=== PATIENT | male | born 1980 | race Caucasian/White ===

== ENCOUNTER 2024-11-21 15:40 | Inpatient (IN) | payer MEDICAID, OTHER, SELFPAY ==
[2024-11-21 16:00] VITALS: BP 112/62; PULSE 80; RESP 16; TEMP 36.8; O2SAT 98
[2024-11-21 16:23] VITALS: BMI 18.9
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
[2024-11-21 20:00] VITALS: BP 101/64; PULSE 78; RESP 16; TEMP 36.6; O2SAT 96
[2024-11-21] MEDS: OLANZapine 7.5 MG TABLET 15 MG PO (21:00)
[2024-11-21] MEDS: Fluticasone/Vilanterol 200/25 BLST.W.DEV 1 PUFF INHALE (21:26)
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
[2024-11-22 07:00] VITALS: BMI 19.4
[2024-11-22 07:25] VITALS: BP 121/74; PULSE 73; RESP 16; TEMP 36.2; O2SAT 97
[2024-11-22 07:44] LABS: MANUAL DIFF FLAG NO
[2024-11-22 07:59] LABS: Hematocrit 45.5 % (42.0-52.0); Hemoglobin 14.7 g/dl (14.0-18.0); Imm Gran Abs Auto 0.03 X10*3/uL (0.00-0.03); Imm Gran Pct Auto 0.4 % (0.0-0.4); Lymphocytes Absolute Auto 2.2 X10*3/uL (1.2-4.9); Mean Corpuscular HGB Conc 32.3 g/dl (31.0-36.0); Mean Corpuscular Hemoglobin 30.9 pg (27.0-33.0); Mean Corpuscular Volume 95.6 fL (80.0-98.0); NRBC Abs Auto 0.000 X10*3/uL (0.0-0.012); NRBC Pct Auto 0.0 /100WBC (0.0-0.2); Platelet Count 349 X10*3/uL (160-400); Red Blood Count 4.76 X10*6/uL (4.60-5.80); White Blood Count 6.8 X10*3/uL (4.8-10.8)
[2024-11-22 08:17] LABS: Alanine Aminotransferase 67 U/L (0-40); Albumin Level 4.8 g/dL (3.5-5.0); Alkaline Phosphatase 81 U/L (39-117); Anion Gap 13 (12-20); Aspartate Amino Transferase 32 U/L (5-37); Blood Urea Nitrogen 20 mg/dL (9-16); Calcium 9.6 mg/dL (8.4-10.2); Carbon Dioxide 29 mmol/L (22-29); Chloride 106 mmol/L (96-108); Cholesterol 190 mg/dL (<200); Creatinine Clr Calc Pharmacy 100.4; Estimated Glomerular Filt Rate > 60; HDL Cholesterol 64 mg/dL (>40); Potassium 4.7 mmol/L (3.3-5.1); Sodium 143 mmol/L (135-145); Total Protein 7.4 g/dL (6.5-8.0); Triglycerides 54 mg/dL (<150)
[2024-11-22 08:18] LABS: Hemoglobin A1C 123.8561 umol/L; Total Hemoglobin (HGBA1C) 3770.9232 umol/L
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
[2024-11-22] MEDS: Fluticasone/Vilanterol 200/25 BLST.W.DEV 1 PUFF INHALE ×2 (08:52→20:30)
[2024-11-22] MEDS: Magnesium Hydrox/Alum Hydrox 30 ML ORAL.SUSP PO (14:35)
--- NOTE | 2024-11-22 17:39 | HO.PSYCHPN ---
Subjective Subjective Date of Service: 11/22/24 Reason For Visit: schizophrenia, unspecified type Subjective Notes: Conditional Voluntary Interim History: chart reviewed, case discussed with tx team Pt speaks [place] (first language) and Vietnamese. I offered an railroad car painter but pt declined. Pt reports that he came to the hospital to get help with getting a house, car and money. 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 T/W informed pt that the hospital cannot help him obtain these things but SW may be able to help him get into a intermediate. He reports being hospitalized >70 x in [facility] for schizophrenia. denies any h/o hallucinations Pt denies AH/VH, depression, anxiety, SI/violent ideation Denies physical complaints or med SE He is content w/ his current med regimen Mental Status Exam Mental Status Exam Narrative: Appearance: fair grooming. Good eye contact Attitude:Cooperative Speech: Generally fluent in Vietnamese, declined business office associate. Motor activity: Calm and without any tics, tremors or dyskinesias. Steady gait Mood: as noted above Affect: appropriate, reactive, generally bright Thought process: Somewhat disorganized Thought content: as noted above. Perception: Denies AH/VH and does not appear to respond to internal stimuli Insight: fair Judgment: impaired Diagnostics Vital Signs (24Hr): Vital Signs - 24 hr 11/21/24 20:00 11/22/24 07:25 Temperature 97.8 F 97.1 F Pulse Rate 78 73 Respiratory Rate 16 16 Blood Pressure 101/64 121/74 Pulse Oximetry 96 97 Oxygen Delivery Method Room Air Room Air BMI result Body Mass Index 19.4 Labs 11/22/24 07:30 11/22/24 07:30 Labs: Laboratory Results - last 48 hr 11/22/24 07:30 WBC 6.8 RBC 4.76 Hgb 14.7 Hct 45.5 MCV 95.6 MCH 30.9 MCHC 32.3 RDW 13.5 Plt Count 349 MPV 9.2 L Immature Gran % (Auto) 0.4 Neut % (Auto) 57.5 Lymph % (Auto) 32.1 [place] % (Auto) 4.8 Eos % (Auto) 3.7 Baso % (Auto) 1.5 Lymph # (Auto) 2.2 [place] # (Auto) 0.3 Eos # (Auto) 0.3 Baso # (Auto) 0.1 Abs Immat Gran (auto) 0.03 Absolute Neuts (auto) 3.9 Absolute Nucleated RBC 0.000 Nucleated RBC % (auto) 0.0 Sodium 143 Potassium 4.7 Chloride 106 Carbon Dioxide 29 Anion Gap 13 BUN 20 H Creatinine 0.78 Estim Creat Clear Calc 100.4 Estimated GFR > 60 Random Glucose 88 Estimat Average Glucose 103 Hemoglobin A1c % 5.2 Calcium 9.6 Total Bilirubin 0.3 AST 32 ALT 67 H Alkaline Phosphatase 81 Total Protein 7.4 Albumin 4.8 Triglycerides 54 Cholesterol 190 LDL Cholesterol, Calc 116 H HDL Cholesterol 64 Medications Medications Current Medications Acetaminophen (Acetaminophen 325 Mg Tablet) 650 mg PO Q6H PRN PRN Reason: Headache/Pain, Scale 1-10 Al Hydroxide/Mg Hydroxide (Magnesium Hydrox/Alum Hydrox 30 Ml Oral.Susp) 30 ml PO Q6H PRN PRN Reason: Heartburn/Nausea Last Admin: 11/22/24 14:35 Dose: 30 ml Albuterol Sulfate (Albuterol Sulfate 90 Mcg 8 Gm Inhaler) 2 puff INHALE RQ6H PRN PRN Reason: Shortness of Breath/Wheezing Atorvastatin Calcium (Atorvastatin Calcium 20 Mg Tablet) 20 mg PO DAILY [facility] Last Admin: 11/22/24 08:53 Dose: 20 mg Fluticasone/Vilanterol (Fluticasone/Vilanterol 200/25 Blst.W.Dev) 1 puff INHALE RBID [facility] Last Admin: 11/22/24 08:52 Dose: 1 puff Hydroxyzine HCl (Hydroxyzine Hcl 25 Mg Tablet) 25 mg PO Q6H PRN PRN Reason: mild anxiety Magnesium Hydroxide (Milk Of Magnesia 30 Ml Oral.Susp) 30 ml PO DAILY PRN PRN Reason: Constipation Nicotine Polacrilex (Nicotine Polacrilex 2 Mg Gum) 2 mg BUCCAL Q2H PRN PRN Reason: Nicotine Cravings Last Admin: 11/22/24 12:51 Dose: 2 mg Olanzapine (Olanzapine 7.5 Mg Tablet) 15 mg PO BEDTIME [facility] Last Admin: 11/21/24 21:00 Dose: 15 mg Olanzapine (Olanzapine 10 Mg Tablet) 10 mg PO DAILY [facility] Last Admin: 11/22/24 08:53 Dose: 10 mg Quetiapine Fumarate (Quetiapine Fumarate 50 Mg Tablet) 50 mg PO BID PRN PRN Reason: Hallucinations Trazodone HCl (Trazodone Hcl 50 Mg Tablet) 50 mg PO BEDTIME MRX1 PRN PRN Reason: Insomnia Allergies Allergies Allergy/AdvReac Type Severity Reaction Status Date / Time No Known Allergies Allergy Verified 11/21/24 16:22 Assessment & Plan Assessment & Plan (1) Schizophrenia: Status: Acute Code(s): F20.9 - Schizophrenia, unspecified Plan patient is a 44 y.o male with hx of schizophrenia who was brought in on a section 12 as he eloped from [facility] where he has been for about a week and was found by [employer] urinating in the street. Patient exhibited worsening psychotic symptoms, increasing in agitation. Hospital course: 11/21/24: Increase zypexa up to total 25mg daily in divided dose. Pending effect. Seroquel PRN available. 11/22/24: pt denies any psychiatric concerns, states that he just wants help w/ housing, a car and money. Will continue current tx plan for now. Reason for continued inpatient stay Substantial Risk for: med/psych decompensation Time Spent With Patient Time: Total time managing care of this patient today _30___ minutes.
[2024-11-22 20:00] VITALS: BP 107/56; PULSE 88; RESP 16; TEMP 36.5; O2SAT 99
[2024-11-22] MEDS: OLANZapine 7.5 MG TABLET 15 MG PO (20:30)
[2024-11-23 07:49] VITALS: BP 112/66; PULSE 73; RESP 14; TEMP 36.4; O2SAT 97
[2024-11-23] MEDS: Fluticasone/Vilanterol 200/25 BLST.W.DEV 1 PUFF INHALE ×2 (08:37→20:33)
--- NOTE | 2024-11-23 15:30 | P.PNPSI_ITS ---
Subjective Subjective Date of Service: 11/23/24 Reason For Visit: schizophrenia, unspecified type Interim History: Active on unit. Patient reports feeling okay today; he reports sleeping well last night. Pt states he will try to go to groups today. denies SI/HI/VH/AH. denies any issues at this time. Continue tx plan. Medication Compliance: Yes Side effects from medications: No Attending Groups: Intermittent Mental Status Exam Mental Status Exam Patient Appearance: Appropriate Patient Orientation: Person, Place, Time and Situation Level of Consciousness: Awake and Alert Patient Behavior: Cooperative and Good Eye Contact Mood Description: Calm Affect Description: Calm Ability to Follow Directions: Good Speech Pattern: Clear Memory Description: Intact Hallucinations: None Delusions: Not Present Thought Process: Intact Thought Content: positive for Intact Diagnostics Vital Signs (24Hr): Vital Signs - 24 hr 11/22/24 20:00 11/23/24 07:49 Temperature 97.7 F 97.6 F Pulse Rate 88 73 Respiratory Rate 16 14 Blood Pressure 107/56 L 112/66 Pulse Oximetry 99 97 Oxygen Delivery Method Room Air Room Air BMI result Body Mass Index 19.4 Labs 11/22/24 07:30 11/22/24 07:30 Labs: Laboratory Results - last 48 hr 11/22/24 07:30 WBC 6.8 RBC 4.76 Hgb 14.7 Hct 45.5 MCV 95.6 MCH 30.9 MCHC 32.3 RDW 13.5 Plt Count 349 MPV 9.2 L Immature Gran % (Auto) 0.4 Neut % (Auto) 57.5 Lymph % (Auto) 32.1 Baca % (Auto) 4.8 Eos % (Auto) 3.7 Baso % (Auto) 1.5 Lymph # (Auto) 2.2 [place] # (Auto) 0.3 Eos # (Auto) 0.3 Baso # (Auto) 0.1 Abs Immat Gran (auto) 0.03 Absolute Neuts (auto) 3.9 Absolute Nucleated RBC 0.000 Nucleated RBC % (auto) 0.0 Sodium 143 Potassium 4.7 Chloride 106 Carbon Dioxide 29 Anion Gap 13 BUN 20 H Creatinine 0.78 Estim Creat Clear Calc 100.4 Estimated GFR > 60 Random Glucose 88 Estimat Average Glucose 103 Hemoglobin A1c % 5.2 Calcium 9.6 Total Bilirubin 0.3 AST 32 ALT 67 H Alkaline Phosphatase 81 Total Protein 7.4 Albumin 4.8 Triglycerides 54 Cholesterol 190 LDL Cholesterol, Calc 116 H HDL Cholesterol 64 Medications Medications Current Medications Acetaminophen (Acetaminophen 325 Mg Tablet) 650 mg PO Q6H PRN PRN Reason: Headache/Pain, Scale 1-10 Al Hydroxide/Mg Hydroxide (Magnesium Hydrox/Alum Hydrox 30 Ml Oral.Susp) 30 ml PO Q6H PRN PRN Reason: Heartburn/Nausea Last Admin: 11/22/24 14:35 Dose: 30 ml Albuterol Sulfate (Albuterol Sulfate 90 Mcg 8 Gm Inhaler) 2 puff INHALE RQ6H PRN PRN Reason: Shortness of Breath/Wheezing Atorvastatin Calcium (Atorvastatin Calcium 20 Mg Tablet) 20 mg PO DAILY [facility] Last Admin: 11/23/24 08:36 Dose: 20 mg Fluticasone/Vilanterol (Fluticasone/Vilanterol 200/25 Blst.W.Dev) 1 puff INHALE RBID [facility] Last Admin: 11/23/24 08:37 Dose: 1 puff Hydroxyzine HCl (Hydroxyzine Hcl 25 Mg Tablet) 25 mg PO Q6H PRN PRN Reason: mild anxiety Magnesium Hydroxide (Milk Of Magnesia 30 Ml Oral.Susp) 30 ml PO DAILY PRN PRN Reason: Constipation Nicotine Polacrilex (Nicotine Polacrilex 2 Mg Gum) 2 mg BUCCAL Q2H PRN PRN Reason: Nicotine Cravings Last Admin: 11/23/24 14:20 Dose: 2 mg Olanzapine (Olanzapine 7.5 Mg Tablet) 15 mg PO BEDTIME [facility] Last Admin: 11/22/24 20:30 Dose: 15 mg Olanzapine (Olanzapine 10 Mg Tablet) 10 mg PO DAILY [facility] Last Admin: 11/23/24 08:36 Dose: 10 mg Quetiapine Fumarate (Quetiapine Fumarate 50 Mg Tablet) 50 mg PO BID PRN PRN Reason: Hallucinations Trazodone HCl (Trazodone Hcl 50 Mg Tablet) 50 mg PO BEDTIME MRX1 PRN PRN Reason: Insomnia Allergies Allergies Allergy/AdvReac Type Severity Reaction Status Date / Time No Known Allergies Allergy Verified 11/21/24 16:22 Assessment & Plan Assessment & Plan (1) Schizophrenia: Status: Acute Code(s): F20.9 - Schizophrenia, unspecified Plan patient is a 44 y.o male with hx of schizophrenia who was brought in on a section 12 as he eloped from [facility] where he has been for about a week and was found by [employer] urinating in the [address]. Patient exhibited worsening psychotic symptoms, increasing in agitation. Hospital course: 11/21/24: Increase zypexa up to total 25mg daily in divided dose. Pending effect. Seroquel PRN available. 11/22/24: pt denies any psychiatric concerns, states that he just wants help w/ housing, a car and money. Will continue current tx plan for now. 11/23: Active on unit. Patient reports feeling okay today; he reports sleeping well last night. Pt states he will try to go to groups today. denies SI/HI/VH/AH. denies any issues at this time. Continue tx plan. Patient educated on: diagnosis and medication risk/benefits Reason for continued inpatient stay Substantial Risk for: med/psych decompensation Time Spent With Patient Time: Total time managing care of this patient today _15___ minutes.
[2024-11-23 20:23] VITALS: BP 123/79; PULSE 70; RESP 16; TEMP 37.1; O2SAT 96
[2024-11-23] MEDS: OLANZapine 7.5 MG TABLET 15 MG PO (20:28)
[2024-11-24 08:00] VITALS: BP 124/82; PULSE 72; RESP 18; TEMP 36.1; O2SAT 97
[2024-11-24] MEDS: Fluticasone/Vilanterol 200/25 BLST.W.DEV 1 PUFF INHALE ×2 (08:49→22:16)
--- NOTE | 2024-11-24 11:04 | HO.PSYCHPN ---
Subjective Subjective Date of Service: 11/24/24 Reason For Visit: schizophrenia, unspecified type Subjective Notes: Conditional Voluntary Interim History: Patient was seen and discussed in rounds today. Records and plans were reviewed. He continues to be flat and guarded. Appears to be responding to internal stimuli. Medication compliant. No complaints or side effects. Eating and sleeping adequately. No SI. No changes were made today Review of Systems Review of Systems Yes all other systems are reviewed and are negative Mental Status Exam Mental Status Exam Patient Appearance: Appropriate Patient Orientation: Person, Place, Time and Situation Level of Consciousness: Awake and Alert Patient Behavior: Cooperative and Good Eye Contact Mood Description: Calm Affect Description: Calm Ability to Follow Directions: Good Speech Pattern: Clear Memory Description: Intact Hallucinations: None Delusions: Not Present Thought Process: Intact Thought Content: positive for Intact Diagnostics Vital Signs (24Hr): Vital Signs - 24 hr 11/23/24 20:23 11/24/24 08:00 Temperature 98.8 F 96.9 F Pulse Rate 70 72 Respiratory Rate 16 18 Blood Pressure 123/79 124/82 Pulse Oximetry 96 97 Oxygen Delivery Method Room Air Room Air BMI result Body Mass Index 19.4 Labs 11/22/24 07:30 11/22/24 07:30 Medications Medications Current Medications Acetaminophen (Acetaminophen 325 Mg Tablet) 650 mg PO Q6H PRN PRN Reason: Headache/Pain, Scale 1-10 Al Hydroxide/Mg Hydroxide (Magnesium Hydrox/Alum Hydrox 30 Ml Oral.Susp) 30 ml PO Q6H PRN PRN Reason: Heartburn/Nausea Last Admin: 11/22/24 14:35 Dose: 30 ml Albuterol Sulfate (Albuterol Sulfate 90 Mcg 8 Gm Inhaler) 2 puff INHALE RQ6H PRN PRN Reason: Shortness of Breath/Wheezing Atorvastatin Calcium (Atorvastatin Calcium 20 Mg Tablet) 20 mg PO DAILY [facility] Last Admin: 11/24/24 08:50 Dose: 20 mg Fluticasone/Vilanterol (Fluticasone/Vilanterol 200/25 Blst.W.Dev) 1 puff INHALE RBID [facility] Last Admin: 11/24/24 08:49 Dose: 1 puff Hydroxyzine HCl (Hydroxyzine Hcl 25 Mg Tablet) 25 mg PO Q6H PRN PRN Reason: mild anxiety Magnesium Hydroxide (Milk Of Magnesia 30 Ml Oral.Susp) 30 ml PO DAILY PRN PRN Reason: Constipation Nicotine Polacrilex (Nicotine Polacrilex 2 Mg Gum) 2 mg BUCCAL Q2H PRN PRN Reason: Nicotine Cravings Last Admin: 11/24/24 10:45 Dose: 2 mg Olanzapine (Olanzapine 7.5 Mg Tablet) 15 mg PO BEDTIME [facility] Last Admin: 11/23/24 20:28 Dose: 15 mg Olanzapine (Olanzapine 10 Mg Tablet) 10 mg PO DAILY [facility] Last Admin: 11/24/24 08:50 Dose: 10 mg Quetiapine Fumarate (Quetiapine Fumarate 50 Mg Tablet) 50 mg PO BID PRN PRN Reason: Hallucinations Last Admin: 11/23/24 20:28 Dose: 50 mg Trazodone HCl (Trazodone Hcl 50 Mg Tablet) 50 mg PO BEDTIME MRX1 PRN PRN Reason: Insomnia Allergies Allergies Allergy/AdvReac Type Severity Reaction Status Date / Time No Known Allergies Allergy Verified 11/21/24 16:22 Assessment & Plan Assessment & Plan (1) Schizophrenia: Status: Acute Code(s): F20.9 - Schizophrenia, unspecified Plan patient is a 44 y.o male with hx of schizophrenia who was brought in on a section 12 as he eloped from [facility] where he has been for about a week and was found by [employer] urinating in the [address]. Patient exhibited worsening psychotic symptoms, increasing in agitation. Hospital course: 11/21/24: Increase zypexa up to total 25mg daily in divided dose. Pending effect. Seroquel PRN available. 11/22/24: pt denies any psychiatric concerns, states that he just wants help w/ housing, a car and money. Will continue current tx plan for now. 11/23: Active on unit. Patient reports feeling okay today; he reports sleeping well last night. Pt states he will try to go to groups today. denies SI/HI/VH/AH. denies any issues at this time. Continue tx plan. 11/24: Continue current regimen and plans Reason for continued inpatient stay Substantial Risk for: med/psych decompensation Time Spent With Patient Time: Total time managing care of this patient today ____ minutes.
[2024-11-24 19:52] VITALS: BP 100/67; PULSE 86; RESP 18; TEMP 36.3; O2SAT 97
[2024-11-24] MEDS: OLANZapine 7.5 MG TABLET 15 MG PO (22:16)
[2024-11-25 08:00] VITALS: BP 114/69; PULSE 82; RESP 16; TEMP 36.3; O2SAT 97
--- NOTE | 2024-11-25 08:16 | HO.PSYCHPN ---
Subjective Subjective Date of Service: 11/25/24 Reason For Visit: schizophrenia, unspecified type Subjective Notes: Conditional Voluntary Interim History: Patient was seen and discussed in rounds today. Records and plans were reviewed. He has continued to be mostly isolative. He appears preoccupied and probably be responding to internal stimuli. He is pleasant and cooperative. No complaints or side effects. No SI Review of Systems Review of Systems Yes all other systems are reviewed and are negative Mental Status Exam Mental Status Exam Narrative: In today's visit he is alert, oriented and pleasant. Normal speech. Moderate eye contact. Affect is constricted. No acute signs of psychosis but appears to be responding to internal stimuli. Denies AVH. Denies SI/HI. Cognitively appears to be intact on observation. Judgment is hard to assess. He is able to move all limbs. No gait abnormalities Diagnostics Vital Signs (24Hr): Vital Signs - 24 hr 11/24/24 19:52 Temperature 97.4 F Pulse Rate 86 Respiratory Rate 18 Blood Pressure 100/67 Pulse Oximetry 97 Oxygen Delivery Method Room Air BMI result Body Mass Index 19.4 Labs 11/22/24 07:30 11/22/24 07:30 Medications Medications Current Medications Acetaminophen (Acetaminophen 325 Mg Tablet) 650 mg PO Q6H PRN PRN Reason: Headache/Pain, Scale 1-10 Last Admin: 11/24/24 15:00 Dose: 650 mg Al Hydroxide/Mg Hydroxide (Magnesium Hydrox/Alum Hydrox 30 Ml Oral.Susp) 30 ml PO Q6H PRN PRN Reason: Heartburn/Nausea Last Admin: 11/22/24 14:35 Dose: 30 ml Albuterol Sulfate (Albuterol Sulfate 90 Mcg 8 Gm Inhaler) 2 puff INHALE RQ6H PRN PRN Reason: Shortness of Breath/Wheezing Atorvastatin Calcium (Atorvastatin Calcium 20 Mg Tablet) 20 mg PO DAILY [facility] Last Admin: 11/24/24 08:50 Dose: 20 mg Fluticasone/Vilanterol (Fluticasone/Vilanterol 200/25 Blst.W.Dev) 1 puff INHALE RBID [facility] Last Admin: 11/24/24 22:16 Dose: 1 puff Hydroxyzine HCl (Hydroxyzine Hcl 25 Mg Tablet) 25 mg PO Q6H PRN PRN Reason: mild anxiety Magnesium Hydroxide (Milk Of Magnesia 30 Ml Oral.Susp) 30 ml PO DAILY PRN PRN Reason: Constipation Nicotine Polacrilex (Nicotine Polacrilex 2 Mg Gum) 2 mg BUCCAL Q2H PRN PRN Reason: Nicotine Cravings Last Admin: 11/24/24 10:45 Dose: 2 mg Olanzapine (Olanzapine 7.5 Mg Tablet) 15 mg PO BEDTIME [facility] Last Admin: 11/24/24 22:16 Dose: 15 mg Olanzapine (Olanzapine 10 Mg Tablet) 10 mg PO DAILY [facility] Last Admin: 11/24/24 08:50 Dose: 10 mg Quetiapine Fumarate (Quetiapine Fumarate 50 Mg Tablet) 50 mg PO BID PRN PRN Reason: Hallucinations Last Admin: 11/24/24 22:16 Dose: 50 mg Trazodone HCl (Trazodone Hcl 50 Mg Tablet) 50 mg PO BEDTIME MRX1 PRN PRN Reason: Insomnia Allergies Allergies Allergy/AdvReac Type Severity Reaction Status Date / Time No Known Allergies Allergy Verified 11/21/24 16:22 Assessment & Plan Assessment & Plan (1) Schizophrenia: Status: Acute Code(s): F20.9 - Schizophrenia, unspecified Plan patient is a 44 y.o male with hx of schizophrenia who was brought in on a section 12 as he eloped from [facility] where he has been for about a week and was found by [employer] urinating [address] the [address]. Patient exhibited worsening psychotic symptoms, increasing in agitation. Hospital course: 11/21/24: Increase zypexa up to total 25mg daily in divided dose. Pending effect. Seroquel PRN available. 11/22/24: pt denies any psychiatric concerns, states that he just wants help w/ housing, a car and money. Will continue current tx plan for now. 11/23: Active on unit. Patient reports feeling okay today; he reports sleeping well last night. Pt states he will try to go to groups today. denies SI/HI/VH/AH. denies any issues at this time. Continue tx plan. 11/24: Continue current regimen and plans 11/25: Continue current regimen and plans Reason for continued inpatient stay Substantial Risk for: med/psych decompensation Time Spent With Patient Time: Total time managing care of this patient today ____ minutes.
[2024-11-25] MEDS: Fluticasone/Vilanterol 200/25 BLST.W.DEV 1 PUFF INHALE ×2 (08:30→20:49)
--- NOTE | 2024-11-25 10:42 | HO.PSYCHPN ---
Subjective Subjective Date of Service: 11/25/24 Reason For Visit: schizophrenia, unspecified type Subjective Notes: Conditional Voluntary Interim History: Patient was seen and discussed in rounds today. Records and plans were reviewed. He continues to be marginal in the milieu. He is eating and sleeping adequately. Preoccupied and distracted and probably responding to internal stimuli. No behavioral or safety issues. No SI. No changes were made today Review of Systems Review of Systems Yes all other systems are reviewed and are negative Mental Status Exam Mental Status Exam Narrative: In today's visit he is alert, oriented and pleasant. Normal speech. Moderate eye contact. Affect is constricted. No acute signs of psychosis but appears to be responding to internal stimuli. Denies AVH. Denies SI/HI. Cognitively appears to be intact on observation. Judgment is hard to assess. He is able to move all limbs. Diagnostics Vital Signs (24Hr): Vital Signs - 24 hr 11/24/24 19:52 11/25/24 08:00 Temperature 97.4 F 97.3 F Pulse Rate 86 82 Respiratory Rate 18 16 Blood Pressure 100/67 114/69 Pulse Oximetry 97 97 Oxygen Delivery Method Room Air Room Air BMI result Body Mass Index 19.4 Labs 11/22/24 07:30 11/22/24 07:30 Medications Medications Current Medications Acetaminophen (Acetaminophen 325 Mg Tablet) 650 mg PO Q6H PRN PRN Reason: Headache/Pain, Scale 1-10 Last Admin: 11/24/24 15:00 Dose: 650 mg Al Hydroxide/Mg Hydroxide (Magnesium Hydrox/Alum Hydrox 30 Ml Oral.Susp) 30 ml PO Q6H PRN PRN Reason: Heartburn/Nausea Last Admin: 11/22/24 14:35 Dose: 30 ml Albuterol Sulfate (Albuterol Sulfate 90 Mcg 8 Gm Inhaler) 2 puff INHALE RQ6H PRN PRN Reason: Shortness of Breath/Wheezing Atorvastatin Calcium (Atorvastatin Calcium 20 Mg Tablet) 20 mg PO DAILY [facility] Last Admin: 11/25/24 08:30 Dose: 20 mg Fluticasone/Vilanterol (Fluticasone/Vilanterol 200/25 Blst.W.Dev) 1 puff INHALE RBID [facility] Last Admin: 11/25/24 08:30 Dose: 1 puff Hydroxyzine HCl (Hydroxyzine Hcl 25 Mg Tablet) 25 mg PO Q6H PRN PRN Reason: mild anxiety Magnesium Hydroxide (Milk Of Magnesia 30 Ml Oral.Susp) 30 ml PO DAILY PRN PRN Reason: Constipation Nicotine Polacrilex (Nicotine Polacrilex 2 Mg Gum) 2 mg BUCCAL Q2H PRN PRN Reason: Nicotine Cravings Last Admin: 11/24/24 10:45 Dose: 2 mg Olanzapine (Olanzapine 7.5 Mg Tablet) 15 mg PO BEDTIME [facility] Last Admin: 11/24/24 22:16 Dose: 15 mg Olanzapine (Olanzapine 10 Mg Tablet) 10 mg PO DAILY [facility] Last Admin: 11/25/24 08:30 Dose: 10 mg Quetiapine Fumarate (Quetiapine Fumarate 50 Mg Tablet) 50 mg PO BID PRN PRN Reason: Hallucinations Last Admin: 11/24/24 22:16 Dose: 50 mg Trazodone HCl (Trazodone Hcl 50 Mg Tablet) 50 mg PO BEDTIME MRX1 PRN PRN Reason: Insomnia Allergies Allergies Allergy/AdvReac Type Severity Reaction Status Date / Time No Known Allergies Allergy Verified 11/21/24 16:22 Assessment & Plan Assessment & Plan (1) Schizophrenia: Status: Acute Code(s): F20.9 - Schizophrenia, unspecified Plan patient is a 44 y.o male with hx of schizophrenia who was brought in on a section 12 as he eloped from [facility] where he has been for about a week and was found by [employer] urinating in the [address]. Patient exhibited worsening psychotic symptoms, increasing in agitation. Hospital course: 11/21/24: Increase zypexa up to total 25mg daily in divided dose. Pending effect. Seroquel PRN available. 11/22/24: pt denies any psychiatric concerns, states that he just wants help w/ housing, a car and money. Will continue current tx plan for now. 11/23: Active on unit. Patient reports feeling okay today; he reports sleeping well last night. Pt states he will try to go to groups today. denies SI/HI/VH/AH. denies any issues at this time. Continue tx plan. 11/24: Continue current regimen and plans 11/25: Continue current regimen and plans 11/25: Continue current regimen and plans Reason for continued inpatient stay Substantial Risk for: med/psych decompensation Time Spent With Patient Time: Total time managing care of this patient today ____ minutes.
[2024-11-25 20:00] VITALS: BP 100/60; PULSE 80; RESP 16; TEMP 37.2; O2SAT 99
[2024-11-25] MEDS: OLANZapine 7.5 MG TABLET 15 MG PO (20:50)
[2024-11-26 08:00] VITALS: BP 121/78; PULSE 74; RESP 20; TEMP 36.6; O2SAT 97
--- NOTE | 2024-11-26 08:12 | HO.PSYCHPN ---
Subjective Subjective Date of Service: 11/25/24 Reason For Visit: schizophrenia, unspecified type Subjective Notes: Conditional Voluntary Interim History: Patient was seen and discussed in rounds today. Records and plans were reviewed. He he continues to be med compliant but has auditory hallucinations and some self dialogue. Eating and sleeping adequately. No complaints or side effects. No SI. No changes were made today Review of Systems Review of Systems Yes all other systems are reviewed and are negative Mental Status Exam Mental Status Exam Narrative: In today's visit he is alert, oriented and pleasant. Normal speech. Moderate eye contact. Affect is constricted. No acute signs of psychosis but appears to be responding to internal stimuli. Admits to auditory hallucinations. Denies SI/HI. Cognitively appears to be intact on observation. Judgment is hard to assess. He is able to move all limbs. Diagnostics Vital Signs (24Hr): Vital Signs - 24 hr 11/25/24 20:00 11/26/24 08:00 Temperature 99 F 97.8 F Pulse Rate 80 74 Respiratory Rate 16 20 Blood Pressure 100/60 121/78 Pulse Oximetry 99 97 Oxygen Delivery Method Room Air Room Air BMI result Body Mass Index 19.4 Labs 11/22/24 07:30 11/22/24 07:30 Medications Medications Current Medications Acetaminophen (Acetaminophen 325 Mg Tablet) 650 mg PO Q6H PRN PRN Reason: Headache/Pain, Scale 1-10 Last Admin: 11/24/24 15:00 Dose: 650 mg Al Hydroxide/Mg Hydroxide (Magnesium Hydrox/Alum Hydrox 30 Ml Oral.Susp) 30 ml PO Q6H PRN PRN Reason: Heartburn/Nausea Last Admin: 11/22/24 14:35 Dose: 30 ml Albuterol Sulfate (Albuterol Sulfate 90 Mcg 8 Gm Inhaler) 2 puff INHALE RQ6H PRN PRN Reason: Shortness of Breath/Wheezing Atorvastatin Calcium (Atorvastatin Calcium 20 Mg Tablet) 20 mg PO DAILY [facility] Last Admin: 11/25/24 08:30 Dose: 20 mg Fluticasone/Vilanterol (Fluticasone/Vilanterol 200/25 Blst.W.Dev) 1 puff INHALE RBID [facility] Last Admin: 11/25/24 20:49 Dose: 1 puff Hydroxyzine HCl (Hydroxyzine Hcl 25 Mg Tablet) 25 mg PO Q6H PRN PRN Reason: mild anxiety Magnesium Hydroxide (Milk Of Magnesia 30 Ml Oral.Susp) 30 ml PO DAILY PRN PRN Reason: Constipation Nicotine Polacrilex (Nicotine Polacrilex 2 Mg Gum) 2 mg BUCCAL Q2H PRN PRN Reason: Nicotine Cravings Last Admin: 11/25/24 17:25 Dose: 2 mg Olanzapine (Olanzapine 7.5 Mg Tablet) 15 mg PO BEDTIME [facility] Last Admin: 11/25/24 20:50 Dose: 15 mg Olanzapine (Olanzapine 10 Mg Tablet) 10 mg PO DAILY [facility] Last Admin: 11/25/24 08:30 Dose: 10 mg Quetiapine Fumarate (Quetiapine Fumarate 50 Mg Tablet) 50 mg PO BID PRN PRN Reason: Hallucinations Last Admin: 11/24/24 22:16 Dose: 50 mg Trazodone HCl (Trazodone Hcl 50 Mg Tablet) 50 mg PO BEDTIME MRX1 PRN PRN Reason: Insomnia Allergies Allergies Allergy/AdvReac Type Severity Reaction Status Date / Time No Known Allergies Allergy Verified 11/21/24 16:22 Assessment & Plan Assessment & Plan (1) Schizophrenia: Status: Acute Code(s): F20.9 - Schizophrenia, unspecified Plan patient is a 44 y.o male with hx of schizophrenia who was brought in on a section 12 as he eloped from [facility] where he has been for about a week and was found by [employer] urinating in the street. Patient exhibited worsening psychotic symptoms, increasing in agitation. Hospital course: 11/21/24: Increase zypexa up to total 25mg daily in divided dose. Pending effect. Seroquel PRN available. 11/22/24: pt denies any psychiatric concerns, states that he just wants help w/ housing, a car and money. Will continue current tx plan for now. 11/23: Active on unit. Patient reports feeling okay today; he reports sleeping well last night. Pt states he will try to go to groups today. denies SI/HI/VH/AH. denies any issues at this time. Continue tx plan. 11/24: Continue current regimen and plans 11/25: Continue current regimen and plans 11/25: Continue current regimen and plans 11/26: Continue current regimen and plans. Reason for continued inpatient stay Substantial Risk for: med/psych decompensation Time Spent With Patient Time: Total time managing care of this patient today ____ minutes.
[2024-11-26] MEDS: Fluticasone/Vilanterol 200/25 BLST.W.DEV 1 PUFF INHALE ×2 (08:27→20:48)
[2024-11-26 19:25] VITALS: BP 119/75; PULSE 78; RESP 18; TEMP 36.7; O2SAT 96
[2024-11-26] MEDS: OLANZapine 7.5 MG TABLET 15 MG PO (20:48)
[2024-11-27 08:04] VITALS: BP 121/72; PULSE 68; RESP 12; TEMP 36.6; O2SAT 97
[2024-11-27] MEDS: Fluticasone/Vilanterol 200/25 BLST.W.DEV 1 PUFF INHALE (08:19)
--- NOTE | 2024-11-27 08:41 | P.PNPSI_ITS ---
Subjective Subjective Date of Service: 11/27/24 Reason For Visit: schizophrenia, unspecified type Interim History: Chart reviewed, case discussed in tx team Mental Status Exam Mental Status Exam Narrative: Appearance: fair grooming. Good eye contact Attitude:Cooperative Speech: Generally fluent in Finnish, declined parts interpreter. Motor activity: Calm and without any tics, tremors or dyskinesias. Steady gait Mood: as noted above Affect: appropriate, reactive, generally bright Thought process: Somewhat disorganized Thought content: as noted above. Perception: Denies AH/VH and does not appear to respond to internal stimuli Insight: fair Judgment: impaired Diagnostics Vital Signs (24Hr): Vital Signs - 24 hr 11/26/24 19:25 11/27/24 08:04 Temperature 98.0 F 97.8 F Pulse Rate 78 68 Respiratory Rate 18 12 Blood Pressure 119/75 121/72 Pulse Oximetry 96 97 Oxygen Delivery Method Room Air Room Air BMI result Body Mass Index 19.4 Labs 11/22/24 07:30 11/22/24 07:30 Medications Medications Current Medications Acetaminophen (Acetaminophen 325 Mg Tablet) 650 mg PO Q6H PRN PRN Reason: Headache/Pain, Scale 1-10 Last Admin: 11/24/24 15:00 Dose: 650 mg Al Hydroxide/Mg Hydroxide (Magnesium Hydrox/Alum Hydrox 30 Ml Oral.Susp) 30 ml PO Q6H PRN PRN Reason: Heartburn/Nausea Last Admin: 11/22/24 14:35 Dose: 30 ml Albuterol Sulfate (Albuterol Sulfate 90 Mcg 8 Gm Inhaler) 2 puff INHALE RQ6H PRN PRN Reason: Shortness of Breath/Wheezing Atorvastatin Calcium (Atorvastatin Calcium 20 Mg Tablet) 20 mg PO DAILY [facility] Last Admin: 11/27/24 08:19 Dose: 20 mg Fluticasone/Vilanterol (Fluticasone/Vilanterol 200/25 Blst.W.Dev) 1 puff INHALE RBID [facility] Last Admin: 11/27/24 08:19 Dose: 1 puff Hydroxyzine HCl (Hydroxyzine Hcl 25 Mg Tablet) 25 mg PO Q6H PRN PRN Reason: mild anxiety Magnesium Hydroxide (Milk Of Magnesia 30 Ml Oral.Susp) 30 ml PO DAILY PRN PRN Reason: Constipation Nicotine Polacrilex (Nicotine Polacrilex 2 Mg Gum) 2 mg BUCCAL Q2H PRN PRN Reason: Nicotine Cravings Last Admin: 11/26/24 12:34 Dose: 2 mg Olanzapine (Olanzapine 7.5 Mg Tablet) 15 mg PO BEDTIME EDILBERTO Last Admin: 11/26/24 20:48 Dose: 15 mg Olanzapine (Olanzapine 10 Mg Tablet) 10 mg PO DAILY EDILBERTO Last Admin: 11/27/24 08:19 Dose: 10 mg Quetiapine Fumarate (Quetiapine Fumarate 50 Mg Tablet) 50 mg PO BID PRN PRN Reason: Hallucinations Last Admin: 11/24/24 22:16 Dose: 50 mg Trazodone HCl (Trazodone Hcl 50 Mg Tablet) 50 mg PO BEDTIME MRX1 PRN PRN Reason: Insomnia Allergies Allergies Allergy/AdvReac Type Severity Reaction Status Date / Time No Known Allergies Allergy Verified 11/21/24 16:22 Assessment & Plan Assessment & Plan (1) Schizophrenia: Status: Acute Code(s): F20.9 - Schizophrenia, unspecified Plan patient is a 44 y.o male with hx of schizophrenia who was brought in on a section 12 as he eloped from [facility] where he has been for about a week and was found by [place] [employer] urinating in the street. Patient exhibited worsening psychotic symptoms, increasing in agitation. Hospital course: 11/21/24: Increase zypexa up to total 25mg daily in divided dose. Pending effect. Seroquel PRN available. 11/22/24: pt denies any psychiatric concerns, states that he just wants help w/ housing, a car and money. Will continue current tx plan for now. 11/23: Active on unit. Patient reports feeling okay today; he reports sleeping well last night. Pt states he will try to go to groups today. denies SI/HI/VH/AH. denies any issues at this time. Continue tx plan. 11/24: Continue current regimen and plans 11/25: Continue current regimen and plans 11/25: Continue current regimen and plans 11/26: Continue current regimen and plans. Time Spent With Patient Time: Total time managing care of this patient today ____ minutes.
--- NOTE | 2024-11-27 13:32 | PM.PSYDC ---
DS: Providers Provider Date of Service: 11/27/24 Date of admission: 11/21/24 15:40 Date of discharge: 11/27/24 Primary care physician: Unknown Physician Admitting clinician: Mamie Acevedo Attending physician on discharge: Aminah Mcfadden DS: Diagnosis Discharge Diagnosis (1) Schizophrenia: Status: Acute DS: Medications Discharge Medications Home Medications: Home Medications ?Medication ?Instructions ?Recorded ?Confirmed budesonide-formoterol HFA 160 2 puff inhalation BID 11/21/24 11/21/24 mcg-4.5 mcg/actuation aerosol inhaler (Symbicort) Previous Rx's ?Medication ?Instructions ?Recorded acetaminophen 325 mg tablet 650 mg (2 x 325 mg) PO Q6H PRN 11/27/24 Headache/Pain, Scale 1-10 #0 tabs albuterol sulfate 90 mcg/actuation 2 puff inhalation RQ6H PRN 11/27/24 aerosol inhaler Shortness Of Breath/Wheezing 30 days #8.5 grams atorvastatin 20 mg tablet 20 mg PO DAILY 30 days #30 tabs 11/27/24 nicotine (polacrilex) 2 mg gum 2 mg buccal Q2H PRN Nicotine 11/27/24 Cravings 30 days #120 ea olanzapine 10 mg tablet 10 mg PO DAILY 30 days #30 tabs 11/27/24 olanzapine 15 mg tablet 15 mg PO BEDTIME 30 days #30 tabs 11/27/24 quetiapine 50 mg tablet 50 mg PO BID PRN hallucinations 30 11/27/24 days #60 tabs Data Data Completed and Pending Completed studies during hospitalization [Text1]: 11/22/24 07:30 WBC 6.8 RBC 4.76 Hgb 14.7 Hct 45.5 MCV 95.6 MCH 30.9 MCHC 32.3 RDW 13.5 Plt Count 349 MPV 9.2 L Immature Gran % (Auto) 0.4 Neut % (Auto) 57.5 Lymph % (Auto) 32.1 Angelina % (Auto) 4.8 Eos % (Auto) 3.7 Baso % (Auto) 1.5 Lymph # (Auto) 2.2 Angelina # (Auto) 0.3 Eos # (Auto) 0.3 Baso # (Auto) 0.1 Abs Immat Gran (auto) 0.03 Absolute Neuts (auto) 3.9 Absolute Nucleated RBC 0.000 Nucleated RBC % (auto) 0.0 Sodium 143 Potassium 4.7 Chloride 106 Carbon Dioxide 29 Anion Gap 13 BUN 20 H Creatinine 0.78 Estim Creat Clear Calc 100.4 Estimated GFR > 60 Random Glucose 88 Estimat Average Glucose 103 Hemoglobin A1c % 5.2 Calcium 9.6 Total Bilirubin 0.3 AST 32 ALT 67 H Alkaline Phosphatase 81 Total Protein 7.4 Albumin 4.8 Triglycerides 54 Cholesterol 190 LDL Cholesterol, Calc 116 H HDL Cholesterol 64 DS: Summary Time Spent with Patient Time attestation: Total time managing care of this patient today ____ minutes. Discharge Plan Discharge Anticipated Discharge Date/Time: 11/27/24 13:17 Patient Disposition: Care Home Discharge Diagnosis: Schizophrenia Referrals: [facility] [Other] - 12/10/24 1:30 pm Referral Note: 11-27-24 Your follow up appt has been scheduled for 12-10-24 @ 1:30pm [facility] ([facility]) [Other] - 1 Week Referral Note: walk in clinic Discharge Medications: New albuterol sulfate 90 mcg/actuation Hfa Aerosol Inhaler 2 puff inhalation RQ6H PRN (Reason: Shortness Of Breath/Wheezing) 30 Days Qty: 8.5 0RF nicotine (polacrilex) 2 mg Gum 2 mg buccal Q2H PRN (Reason: Nicotine Cravings) 30 Days Qty: 120 0RF acetaminophen 325 mg Tablet 650 mg PO Q6H PRN (Reason: Headache/Pain, Scale 1-10) Qty: 0 0RF olanzapine 10 mg Tablet 10 mg PO DAILY 30 Days Qty: 30 0RF olanzapine 15 mg tablet 15 mg PO BEDTIME 30 Days Qty: 30 0RF Continued budesonide-formoterol [Symbicort] 160-4.5 mcg/actuation HFA aerosol inhaler 2 puff inhalation BID atorvastatin 20 mg tablet 20 mg PO DAILY 30 Days Qty: 30 0RF quetiapine 50 mg tablet 50 mg PO BID PRN (Reason: hallucinations) 30 Days Qty: 60 0RF Discontinued olanzapine 5 mg tablet,disintegrating 5 mg PO DAILY olanzapine [Zyprexa Zydis] 5 mg Tablet,Disintegrating 15 mg PO BEDTIME Discharge Orders: Discharge Order (Routine); Ordered 11/27/24 Ordered By: Aminah Mcfadden Diet: Regular diet Activity on Discharge: No Restrictions Stand Alone Forms: Patient Portal Discharge page, Community Support Print Language: Polish Care Plan Goals: Continue taking your medications Abstain from alcohol and drug use Follow up with your outpatient providers Health Concerns: Psychotic symptoms Plan of Treatment: Follow up with your psychiatric provider, PCP and other outpatient providers Take your medication as prescribed Assessment: Risk assessment at the time of discharge: Patient was interviewed on the day of discharge and found to be fully oriented, without any SI or violent ideation. Pt denies any command hallucations to harm self or others Pt has improved insight and judgment and plans to continue treatment Pt is not at imminent risk of harm to self or others and has a safety plan that includes presenting to the closest ER or calling 911 if feeling unsafe. Pt has been observed closely by unit staff and has not engaged in any behaviors that suggest dangerous to self or others and has demonstrated appropriate bheaviors and impulse control.
== END 2024-11-27 14:00 | disposition home or self-care (01) | DRG 750 ==
PROVIDERS: Admitting Provider Psychiatry & Neurology Psychiatry; Visit Provider Psychiatry & Neurology Psychiatry
DX: F20.9 Schizophrenia, unspecified (principal); E78.5 Hyperlipidemia, unspecified; I10 Essential (primary) hypertension; J45.909 Unspecified asthma, uncomplicated; Z59.02 Unsheltered homelessness; Z79.899 Other long term (current) drug therapy
CPT/HCPCS: 36415; 80053; 80061; 83036; 85025

== ENCOUNTER → 2024-11-21 15:40 | Outpatient (BNV) | payer MEDICAID, SELFPAY | PROVIDERS: Admitting Provider Psychiatry & Neurology Psychiatry; Visit Provider Nurse Practitioner Psychiatric/Mental Health | DX: F20.9 Schizophrenia, unspecified (principal) | CPT/HCPCS: 99231; 99499 ==

== ENCOUNTER → 2024-11-21 15:40 | Outpatient (BNV) | payer SELFPAY | PROVIDERS: Admitting Provider Psychiatry & Neurology Psychiatry; Visit Provider Nurse Practitioner Family | DX: J45.909 Unspecified asthma, uncomplicated (principal) | CPT/HCPCS: 99221 ==